=== PATIENT | female | born 1995 | race Caucasian/White ===

== ENCOUNTER 2016-06-11 14:04 | Emergency (ER) | payer OTHER ==
[2016-06-11] MEDS ORDERED: methylPREDNISolone SOD SUCC 125 MG/2 ML VIAL IM ONE (14:31)
[2016-06-11 14:48] VITALS: BP 121/61
--- NOTE | 2016-06-11 15:03 | ED Physician Documentation ---
General Adult - HISTORIAN Historian: patient - HPI Stated Complaint: rash Chief Complaint: General Adult Onset: hours Timing: still present Severity: moderate Further Comments: yes (Pt is a 21 yo female resident of the [facility] with mild MR, who has a rash around her L abdomen and waist that developed since last night. Pt wears depends and is incontinent. Pt states that rash is painful "like razor blades." No fever, n/v.) - ROS CONST: no problems EYES/ENT: none CVS/RESP: none GI/: none MS/SKIN/LYMPH: rash - PAST HX Past History: other (ADHD, ODD, PTSD, FELICITY, Depression, Bipolar d/o, Mild MR, Migraines, incontinence of bladder) Allergies/Adverse Reactions: Allergies Allergy/AdvReac Type Severity Reaction Status Date / Time gabapentin [From Neurontin] Allergy Verified 06/11/16 14:22 quetiapine fumarate Allergy Verified 06/11/16 14:22 [From Seroquel] trazodone Allergy Verified 06/11/16 14:22 Home Medications: Ambulatory Orders Medication Instructions Recorded Desmopressin Acetate [Ddavp] 0.2 mg PO DAILY 02/23/13 Divalproex Sodium [Depakote] 250 mg PO TID 02/23/13 Guanfacine HCl [Intuniv] 2 mg PO DAILY 02/23/13 Levothyroxine Sodium [Synthroid] 50 mcg PO DAILY 02/23/13 Paliperidone [Invega] 6 mg PO DAILY 02/23/13 Prazosin HCl [Minipress] 2 mg PO DAILY 02/23/13 Ziprasidone HCl [Geodon] 20 mg PO DAILY 02/23/13 - SOCIAL HX Smoking History: non-smoker - FAMILY HX Family History: No - VITAL SIGNS Vital Signs: Vital Signs Temp Pulse Resp BP Pulse Ox 98.2 F 78 18 121/61 98 06/11/16 14:20 06/11/16 14:20 06/11/16 14:20 06/11/16 14:20 06/11/16 14:20 - REVIEWED ASSESSMENTS Nursing Assessment Reviewed: Yes Vitals Reviewed: Yes Progress - Progress Progress: Solu-medrol 125 mg IM pt says she is improved Rx Prednisone 50 mg po qd next 4 days. OTC Lamisil AT as directed for possible jenae. ED Results Lab/Radiology - Orders Orders: ED Orders Category Date Time Status methylPREDNISolone SOD SUCC [Solu-MEDROL] Med 06/11/16 14:31 Discontinued 125 mg IM NOW ONE General Adult Physical Exam - PHYSICAL EXAM GENERAL APPEARANCE: no distress EENT: pharynx normal NECK: normal inspection, supple RESPIRATORY: no resp distress, chest non-tender, breath sounds normal CVS: reg rate & rhythm, heart sounds normal ABDOMEN: soft, no organomegaly, normal bowel sounds BACK: normal inspection SKIN: other (erythematous rash L abdomen from waist to thigh, possible jenae) EXTREMITIES: non-tender, normal range of motion NEURO: oriented X3, motor nml, sensation nml Discharge Clincal Impression: Rash Referrals: Blaine Martinez [Primary Care Provider] - Home Medications: Ambulatory Orders Desmopressin Acetate [Ddavp] 0.2 mg PO DAILY 02/23/13 Divalproex Sodium [Depakote] 250 mg PO TID 02/23/13 Guanfacine HCl [Intuniv] 2 mg PO DAILY 02/23/13 Levothyroxine Sodium [Synthroid] 50 mcg PO DAILY 02/23/13 Paliperidone [Invega] 6 mg PO DAILY 02/23/13 Prazosin HCl [Minipress] 2 mg PO DAILY 02/23/13 Ziprasidone HCl [Geodon] 20 mg PO DAILY 02/23/13 Condition: Good Disposition: 01 HOME, SELF-CARE Decision to Admit: NO Decision Time: 15:24
== END 2016-06-11 15:19 | disposition home or self-care (01) ==
LOC: ED 14:04
DX: R21 Rash and other nonspecific skin eruption (principal)
CPT/HCPCS: 96372; 99283; J2930